=== PATIENT | female | born 1995 | race Caucasian/White ===

== ENCOUNTER 2018-08-12 16:55 | Emergency (ER) | payer MEDICAID ==
[~2018-08-12] VITALS: Ht 182.9 cm; Wt 63.8 kg
[~2018-08-12 16:55] MED LIST: NO HOME MEDS; OLAN10TA3 PO; QUET-1 PO
[2018-08-12 18:23] LABS: URINE HCG NEGATIVE (NEG)
[2018-08-12 18:25] LABS: COLOR,URINE AMBER (Yellow); UA COLLECTION TYPE CLN CATCH MIDSTREAM
[2018-08-12 18:26] LABS: CLARITY,URINE SLIGHTLY CLOUDY (Clear)
[2018-08-12 18:40] LABS: BACTERIA,URINE 1+ /HPF (Neg); MUCUS STRANDS NONE SEEN /LPF (Neg); RBC,URINE NONE SEEN /HPF (0-2); SQUAMOUS EPITHELIAL CELL,UR MODERATE /LPF (FEW)
[2018-08-12 19:09] LABS: BASOPHILS % (AUTO) 0.1 % (0-1); EOSINOPHILS % (AUTO) 0.2 % (0-6); HEMATOCRIT 37.4 % (35.0-45.0); HEMOGLOBIN 12.2 g/dl (12.0-16.0); LYMPHOCYTES # (AUTO) 1.6 X10'3 (1.1-4.8); LYMPHOCYTES % (AUTO) 11.4 % (21-51); MEAN CORPUSCULAR HEMOGLOBIN 25.2 PG (27.0-31.0); MEAN CORPUSCULAR HGB CONC 32.5 % (33.0-36.5); MEAN CORPUSCULAR VOLUME 77.6 FL (78-98); MEAN PLATELET VOLUME 8.4 FL (7.4-10.4); MONOCYTES # (AUTO) 0.6 X10'3 (0-0.9); MONOCYTES % (AUTO) 4.4 % (2-12); NEUTROPHILS # (AUTO) 12.3 X10'3 (1.8-7.7); NEUTROPHILS % (AUTO) 83.9 % (42-75); PLATELET COUNT 415 X10'3 (140-440); RED BLOOD COUNT 4.82 X10'6 (4.20-5.60); RED CELL DISTRIBUTION WIDTH 13.4 % (11.5-14.5); WHITE BLOOD COUNT 14.5 X10'3 (4.5-11.0)
[2018-08-12 19:12] LABS: ALANINE AMINOTRANSFERASE 34 U/L (12-78); ALBUMIN 3.4 G/DL (3.4-5.0); ALBUMIN/GLOBULIN RATIO 0.8 (1.1-1.5); ALKALINE PHOSPHATASE 70 IU/L (46-116); ANION GAP 10 (8-16); ASPARTATE AMINO TRANSFERASE 15 U/L (10-37); BLOOD UREA NITROGEN 7 MG/DL (7-18); BUN/CREATININE RATIO 10.4 (6.6-38.0); CALCIUM 8.9 MG/DL (8.5-10.1); CHLORIDE 99 MMOL/L (99-107); CREATININE 0.67 MG/DL (0.40-0.90); GLUCOSE 99 MG/DL (70-104); LIPASE 76 U/L (73-393); SODIUM 138 MMOL/L (135-145); TOTAL CARBON DIOXIDE 28.7 MMOL/L (24-32); TOTAL PROTEIN 7.8 G/DL (6.4-8.2); eGFR > 90 ML/MIN
[2018-08-12 19:13] LABS: INR 1.2 INR
[2018-08-12] MEDS ORDERED: CEPH-572 PO (20:05)
[2018-08-12 20:21] VITALS: BP 129/67
[2018-08-12 21:07] LABS: OCCULT BLOOD STOOL NEGATIVE (Neg)
== END 2018-08-12 20:29 | disposition home or self-care (01) ==
LOC: ER 16:56
DX: R19.7 Diarrhea, unspecified (principal); N39.0 Urinary tract infection, site not specified; R11.10 Vomiting, unspecified; R10.84 Generalized abdominal pain; F12.90 Cannabis use, unspecified, uncomplicated; F15.90 Other stimulant use, unspecified, uncomplicated; F11.90 Opioid use, unspecified, uncomplicated; Z98.890 Other specified postprocedural states
CPT/HCPCS: 36415; 80053; 81001; 81025; 82272; 83690; 85025; 85610; 87088; 99283

== ENCOUNTER 2018-10-26 04:55 | Emergency (ER) | payer MEDICAID, OTHER ==
[~2018-10-26] VITALS: Ht 182.9 cm; Wt 45.9 kg
[2018-10-26] MEDS ORDERED: proCHLORperazine 10 MG/2 ml inj IM ONE (05:10)
[2018-10-26 05:34] VITALS: BP 130/66
[2018-10-26] MEDS ORDERED: metoclopramide 5 mg/ml inj IM ONE (05:45)
[2018-10-26] MEDS ORDERED: METO5TAB98 PO (05:47)
--- NOTE | 2018-10-26 05:58 | NUR ---
given reglan im. pt still vomiting/dry heaving. stable vs. friend at bedside. dr. reaves ok to wait 10 min before dc.
== END 2018-10-26 06:25 | disposition home or self-care (01) ==
LOC: ER 04:57
DX: K29.00 Acute gastritis without bleeding (principal); F10.10 Alcohol abuse, uncomplicated; F12.90 Cannabis use, unspecified, uncomplicated; F15.90 Other stimulant use, unspecified, uncomplicated; F11.90 Opioid use, unspecified, uncomplicated; Z98.890 Other specified postprocedural states; Z79.899 Other long term (current) drug therapy; Y90.0 Blood alcohol level of less than 20 mg/100 ml
CPT/HCPCS: 96372; 99283; J0780; J2765

== ENCOUNTER 2019-01-05 18:09 | Emergency (ER) | payer MEDICAID ==
[~2019-01-05] VITALS: Ht 175.3 cm; Wt 63.6 kg
[2019-01-05 18:25] VITALS: BP 121/66
[2019-01-05] MEDS ORDERED: HYDROcodone/acetaminophen 10/325mg tab PO STA (18:30)
--- NOTE | 2019-01-05 18:33 | NUR ---
PT REFUSED CRUTCHES. STATES SHE WILL "JUST HOBBLE ON IT"
[2019-01-05] MEDS ORDERED: ACET-2119 PO (19:22)
[2019-01-05] MEDS ORDERED: IBUP-1984 PO (19:22)
--- NOTE | 2019-01-05 19:28 | NUR ---
pt has ride home with mother, she is aware she should not drive while on [place] and no ETOH
== END 2019-01-05 19:46 | disposition home or self-care (01) ==
LOC: ER 18:10
DX: S83.92XA Sprain of unspecified site of left knee, initial encounter (principal); F12.90 Cannabis use, unspecified, uncomplicated; F15.90 Other stimulant use, unspecified, uncomplicated; F11.90 Opioid use, unspecified, uncomplicated; Z98.890 Other specified postprocedural states; Z79.899 Other long term (current) drug therapy; V47.9XXA Unspecified car occupant injured in collision with fixed or stationary object in traffic accident, initial encounter; Y93.89 Activity, other specified; Y92.89 Other specified places as the place of occurrence of the external cause; Y99.8 Other external cause status
CPT/HCPCS: 73564; 99283

== ENCOUNTER 2024-06-26 11:59 | Emergency (ER) | payer MEDICAID ==
[~2024-06-26] VITALS: Ht 175.3 cm; Wt 70.6 kg
[2024-06-26 12:01] VITALS: BP 119/84; PULSE 99; TEMP 98.1; O2SAT 99
[2024-06-26] MEDS ORDERED: CLIN-142 PO (12:42)
[2024-06-26] MEDS: clindamycin 150mg capsule PO ONE (12:50)
[2024-06-26] MEDS: acetaminophen 325mg tablet PO ONE (12:50)
[2024-06-26 12:53] VITALS: RESP 18
[2024-06-26] MEDS: ketorolac trometh 15mg/ml vial 15 MG/ML ML IM ONE (12:53)
== END 2024-06-26 13:02 | disposition home or self-care (01) ==
LOC: ER 12:00
DX: K08.89 Other specified disorders of teeth and supporting structures (principal); F41.9 Anxiety disorder, unspecified; F12.90 Cannabis use, unspecified, uncomplicated; F15.90 Other stimulant use, unspecified, uncomplicated; Z79.2 Long term (current) use of antibiotics; Z79.899 Other long term (current) drug therapy
CPT/HCPCS: 96372; 99283; J1885

== ENCOUNTER 2024-06-28 15:30 | Emergency (ER) | payer MEDICAID ==
[~2024-06-28] VITALS: Ht 175.3 cm; Wt 70.0 kg
[~2024-06-28 15:30] MED LIST changes: +CLIN-142 PO
[2024-06-28 15:34] VITALS: BP 127/88; PULSE 87; O2SAT 100
[2024-06-28 17:09] LABS: URINE HCG NEGATIVE (NEG)
[2024-06-28 17:23] VITALS: RESP 14
[2024-06-28] MEDS: ketorolac trometh 15mg/ml vial 15 MG/ML ML IM ONE (17:23)
[2024-06-28 17:26] VITALS: TEMP 98.6
== END 2024-06-28 17:28 ==
LOC: ER 15:30
DX: K04.7 Periapical abscess without sinus (principal); N91.2 Amenorrhea, unspecified; F15.90 Other stimulant use, unspecified, uncomplicated; F12.90 Cannabis use, unspecified, uncomplicated; Z79.2 Long term (current) use of antibiotics; Z79.899 Other long term (current) drug therapy
CPT/HCPCS: 81025; 96372; 99283; J1885